=== PATIENT | female | born 1980 | race Caucasian/White ===

== ENCOUNTER 2022-05-27 11:22 | Inpatient (IN) | payer OTHER ==
[~2022-05-27 11:22] MED LIST: Iopamidol-370 76% 500 ML 1 ML ONE
[2022-05-27] MEDS ORDERED: Morphine 4 MG/ML VIAL ONE (12:11)
[2022-05-27] MEDS ORDERED: Boostrix 0.5 ML (Tdap) VIAL (>/=7 yrs of age) ONE (12:17)
[2022-05-27] MEDS ORDERED: TETANUS, DIPHTHERIA TOX,ADULT (TDVAX) 0.5 ML VIAL IM ONE (12:21)
[2022-05-27] MEDS ORDERED: hydrALAZINE 20 MG/ML VIAL SLOW IVP PRN (12:21)
[2022-05-27] MEDS ORDERED: Ondansetron PF 4 MG/2 ML Vial IVP PRN (12:21)
[2022-05-27 12:26] LABS: ALT (SGPT) Less than 7 U/L (8-55); AST (SGOT) 14 U/L (5-34); Albumin 3.8 g/dL (3.5-5.0); Alkaline Phosphatase 54 U/L (40-110); Anion Gap 13 mmol/L (10-20); BHCG - Serum Negative (NEGATIVE); BUN (Urea Nitrogen) 16 mg/dL (7.0-18.7); Bilirubin, Total 0.3 mg/dL (0.2-1.2); Calc. Creatinine Clearance 0 mL/min (70-130); Calcium 8.5 mg/dL (7.8-10.44); Carbon Dioxide 21 mmol/L (22-29); Chloride 107 mmol/L (98-107); Estimated GFR 93; Globulin 3.2 g/dL (2.4-3.5); Glucose 103 mg/dL (70-105); Potassium 3.7 mmol/L (3.5-5.1); Pregs Control Background? CLEAR/WHITE (CLR/WHITE); Pregs Control Bar Appear? YES (CONTROL BAR); Sodium 137 mmol/L (136-145)
[2022-05-27] MEDS ORDERED: Cyclobenzaprine 10 MG TAB PO PRN (12:35)
[2022-05-27] MEDS ORDERED: traMADol HCl 50 MG TAB PO PRN (12:35)
[2022-05-27 12:40] LABS: #Eosinphils 0.1 thou/uL (0.0-0.7); #Lymphocytes 1.2 thou/uL (1.20-3.40); #Monocytes 0.5 thou/uL (0.11-0.59); #Neutrophils 9.4 thou/uL (1.40-6.50); %Basophils 0.4 % (0.0-1.0); %Eosinophils 0.9 % (0.0-10.0); %Lymphocytes 10.3 % (21.0-51.0); %Monocytes 4.8 % (0.0-10.0); %Neutrophils 83.6 % (42.0-75.0); Hemoglobin 12.7 g/dL (12.0-16.0); Mean Corpuscular HGB CONC 32.3 g/dL (32.0-36.0); Mean Corpuscular Hemoglobin 32.8 pg (27.0-31.0); Mean Platelet Volume 8.6 fL (7.4-10.4); Platelet Count 210 thou/uL (130-400); RBC Distribution Width 11.3 % (11.5-14.5); Red Blood Cell (RBC) Count 3.86 mill/uL (4.20-5.40); White Blood Cell (WBC) Count 11.2 thou/uL (4.8-10.8)
[2022-05-27] MEDS ORDERED: CEFAZOLIN 2 GM in Sodium Chloride 0.9% 100 ML IVPB SCH (13:30)
[2022-05-27] MEDS: Morphine 2 MG/ML VIAL SLOW IVP PRN ×2 (14:43→16:14)
[2022-05-27] MEDS: Sodium Chloride 0.9% 1,000 ML IV SCH (14:44)
[2022-05-27 16:13] VITALS: BMI 27.7
[2022-05-27] MEDS ORDERED: fentaNYL Citrate/PF 100 MCG/2 ML SYRINGE ONE ×2 (17:02→19:53)
[2022-05-27] MEDS ORDERED: HYDROmorphone 0.5 MG/0.5 ML SYRINGE ONE (17:02)
[2022-05-27] MEDS ORDERED: CEFAZOLIN 2 GM VIAL ONE (17:25)
[2022-05-27] MEDS ORDERED: Sodium Chloride 0.9% 100 ML ONE (17:25)
[2022-05-27] MEDS: traMADol HCl 50 MG TAB PO SCH (17:40)
[2022-05-27] MEDS: Ketorolac Tromethamine 30 MG/ML VIAL IVP SCH (17:40)
[2022-05-27] MEDS ORDERED: Ketorolac Tromethamine 30 MG/ML VIAL ONE (17:52)
[2022-05-27] MEDS ORDERED: Ondansetron PF 4 MG/2 ML Vial ONE (17:52)
[2022-05-27] MEDS ORDERED: Dexamethasone 20 MG/5 ML VIAL ONE (17:52)
[2022-05-27] MEDS ORDERED: PROPOFOL 200 MG/20 ML VIAL ONE (17:52)
[2022-05-27] MEDS ORDERED: PHENYLEPHRINE-NS 100 MCG/ML 10 ML SYRINGE ONE (17:52)
[2022-05-27] MEDS ORDERED: Promethazine HCl 25 MG/ML VIAL IVPB PRN (19:48)
[2022-05-27] MEDS ORDERED: Ondansetron HCl/PF 4 MG/2 ML Vial IVP PRN (19:48)
[2022-05-27] MEDS ORDERED: Promethazine HCl 25 MG/ML VIAL IM PRN (19:48)
[2022-05-27] MEDS ORDERED: HYDROmorphone 2 MG/ML VIAL SLOW IVP PRN (19:48)
[2022-05-27] MEDS: Famotidine 20 MG TAB PO SCH (21:35)
[2022-05-27] MEDS: Senokot S 8.6-50 MG TAB PO SCH (21:35)
[2022-05-28] MEDS: Ketorolac Tromethamine 30 MG/ML VIAL IVP SCH ×2 (00:16→06:01)
[2022-05-28] MEDS: traMADol HCl 50 MG TAB PO SCH ×5 (00:17→23:44)
[2022-05-28] MEDS: Sodium Chloride 0.9% 1,000 ML IV SCH ×4 (00:22→22:24)
[2022-05-28] MEDS: CEFAZOLIN 2 GM in Sodium Chloride 0.9% 100 ML IVPB SCH ×2 (02:37→09:20)
[2022-05-28 05:55] LABS: #Lymphocytes 0.7 thou/uL (1.20-3.40); #Monocytes 0.4 thou/uL (0.11-0.59); #Neutrophils 6.4 thou/uL (1.40-6.50); %Basophils 0.1 % (0.0-1.0); %Eosinophils 0.1 % (0.0-10.0); %Monocytes 4.7 % (0.0-10.0); %Neutrophils 86.1 % (42.0-75.0); Hemoglobin 9.9 g/dL (12.0-16.0); Mean Corpuscular HGB CONC 31.8 g/dL (32.0-36.0); Mean Corpuscular Hemoglobin 32.6 pg (27.0-31.0); Mean Platelet Volume 8.7 fL (7.4-10.4); Platelet Count 185 thou/uL (130-400); RBC Distribution Width 11.2 % (11.5-14.5); Red Blood Cell (RBC) Count 3.05 mill/uL (4.20-5.40); White Blood Cell (WBC) Count 7.5 thou/uL (4.8-10.8)
[2022-05-28 06:07] LABS: Phosphorus 2.6 mg/dL (2.3-4.7)
[2022-05-28 06:14] LABS: Anion Gap 11 mmol/L (10-20); BUN (Urea Nitrogen) 6 mg/dL (7.0-18.7); Calc. Creatinine Clearance 120 mL/min (70-130); Calcium 7.3 mg/dL (7.8-10.44); Carbon Dioxide 20 mmol/L (22-29); Chloride 110 mmol/L (98-107); Estimated GFR 112; Glucose 151 mg/dL (70-105); Magnesium 1.7 mg/dL (1.6-2.6); Sodium 137 mmol/L (136-145)
[2022-05-28] MEDS ORDERED: Morphine 2 MG/ML VIAL SLOW IVP PRN (07:28)
[2022-05-28] MEDS ORDERED: Magnesium 2 GM/50 ML(in water) 2 GM in Premix Bag 1 BAG IVPB SCH (07:30)
[2022-05-28] MEDS: Famotidine 20 MG TAB PO SCH ×2 (09:11→22:11)
[2022-05-28] MEDS: Ferrous Sulfate 325 MG TAB PO SCH ×2 (09:11→18:06)
[2022-05-28] MEDS: Ascorbic Acid 500 mg Chewable Tablet PO SCH ×2 (09:11→22:11)
[2022-05-28] MEDS: Senokot S 8.6-50 MG TAB PO SCH ×2 (09:11→22:11)
[2022-05-28] MEDS: Enoxaparin Sodium 40 MG/0.4 ML SYRINGE SC SCH (09:11)
[2022-05-28] MEDS: Polyethylene Glycol 3350 17 GM Packet PO SCH (09:11)
[2022-05-28] MEDS: Ibuprofen 200 MG TAB PO SCH ×2 (11:44→18:07)
[2022-05-28] MEDS ORDERED: Ibuprofen 200 MG TAB PO PRN (12:00)
[2022-05-29] MEDS: Ibuprofen 200 MG TAB PO SCH ×3 (03:42→17:36)
[2022-05-29] MEDS: traMADol HCl 50 MG TAB PO SCH ×3 (05:40→17:35)
[2022-05-29] MEDS ORDERED: Levothyroxine Sodium 88 MCG TAB PO SCH (06:00)
[2022-05-29 06:06] LABS: Hemoglobin 9.6 g/dL (12.0-16.0)
[2022-05-29] MEDS: Sodium Chloride 0.9% 1,000 ML IV SCH (08:31)
[2022-05-29] MEDS: Famotidine 20 MG TAB PO SCH (08:31)
[2022-05-29] MEDS: Senokot S 8.6-50 MG TAB PO SCH (08:31)
[2022-05-29] MEDS: Polyethylene Glycol 3350 17 GM Packet PO SCH (08:31)
[2022-05-29] MEDS: Ascorbic Acid 500 mg Chewable Tablet PO SCH (08:31)
[2022-05-29] MEDS: Enoxaparin Sodium 40 MG/0.4 ML SYRINGE SC SCH (08:31)
[2022-05-29] MEDS: Ferrous Sulfate 325 MG TAB PO SCH ×2 (08:31→17:35)
[2022-05-29 11:36] VITALS: BP 91/63; TEMP 98.1
== END 2022-05-29 19:30 | disposition home or self-care (01) | DRG 492 ==
LOC: ERS 11:22 → SURG B 12:24
PROVIDERS: ADMIT Surgery; ATTEND Surgery
PROC: 0QHH35Z Insertion of External Fixation Device into Left Tibia, Percutaneous Approach (ICD-10-PCS; principal; 2022-05-28)
PROC: 0PSK04Z Reposition Right Ulna with Internal Fixation Device, Open Approach (ICD-10-PCS; 2022-05-28)
PROC: 0PSQ34Z Reposition Left Metacarpal with Internal Fixation Device, Percutaneous Approach (ICD-10-PCS; 2022-05-28)
PROC: 0QBH0ZZ Excision of Left Tibia, Open Approach (ICD-10-PCS; 2022-05-28)
DX: S52.201A Unspecified fracture of shaft of right ulna, initial encounter for closed fracture (principal); S82.452B Displaced comminuted fracture of shaft of left fibula, initial encounter for open fracture type I or II; S82.872B Displaced pilon fracture of left tibia, initial encounter for open fracture type I or II; S62.307A Unspecified fracture of fifth metacarpal bone, left hand, initial encounter for closed fracture; F17.290 Nicotine dependence, other tobacco product, uncomplicated; V49.49XA Driver injured in collision with other motor vehicles in traffic accident, initial encounter; E89.0 Postprocedural hypothyroidism; Z79.899 Other long term (current) drug therapy; Z85.850 Personal history of malignant neoplasm of thyroid
CPT/HCPCS: 36415; 70450; 71260; 72125; 74177; 76000; 80048; 80053; 83735; 84100; 84703; 85014; 85018; 85025; 86900; 86901; 90471; 90715; 96374; C1713; C1776; C1894; G0390; J0690; J1100; J1170; J1650; J1885; J2270; J2405; J2704; J3475; J3490; J7050; Q9967

== ENCOUNTER 2022-06-06 09:42 | Inpatient (IN) | payer OTHER ==
[2022-06-06 11:23] VITALS: BMI 30.1
[2022-06-06] MEDS ORDERED: Fentanyl 100 MCG/2 ML VIAL ONE ×4 (11:29→16:21)
[2022-06-06] MEDS ORDERED: Ropivacaine 0.5% HCl/PF (150 MG/30 ML VIAL) ONE ×2 (11:29→12:38)
[2022-06-06] MEDS ORDERED: Midazolam HCl 2 mg/2 ml Vial ONE (11:29)
[2022-06-06] MEDS ORDERED: fentaNYL Citrate/PF 100 MCG/2 ML SYRINGE ONE (11:52)
[2022-06-06] MEDS ORDERED: Sodium Chloride 0.9% 100 ML ONE (12:12)
[2022-06-06] MEDS ORDERED: CEFAZOLIN 2 GM VIAL ONE (12:12)
[2022-06-06] MEDS ORDERED: Ondansetron PF 4 MG/2 ML Vial ONE (12:38)
[2022-06-06] MEDS ORDERED: PROPOFOL 200 MG/20 ML VIAL ONE (12:38)
[2022-06-06] MEDS ORDERED: Dexamethasone 20 MG/5 ML VIAL ONE (12:38)
[2022-06-06] MEDS ORDERED: Ketorolac Tromethamine 30 MG/ML VIAL ONE (12:38)
[2022-06-06] MEDS ORDERED: HYDROmorphone 2 MG/ML VIAL ONE (13:11)
[2022-06-06] MEDS ORDERED: Bisacodyl 10 MG SUPP PR PRN (14:36)
[2022-06-06] MEDS ORDERED: Ondansetron PF 4 MG/2 ML Vial IVP PRN (14:36)
[2022-06-06] MEDS ORDERED: FENTANYL 50 MCG/ML VIAL 50 MCG/ML VIAL SLOW IVP PRN (14:36)
[2022-06-06] MEDS ORDERED: Communication Order-Pharmacy FS SCH (14:45)
[2022-06-06] MEDS ORDERED: Ondansetron HCl/PF 4 MG/2 ML Vial IVP PRN (16:00)
[2022-06-06] MEDS ORDERED: Promethazine HCl 25 MG/ML VIAL IM/IV PRN (16:00)
[2022-06-06] MEDS: Ferrous Sulfate 325 MG TAB PO SCH (17:15)
[2022-06-06] MEDS: Ketorolac Tromethamine 30 MG/ML VIAL IVP SCH ×2 (17:15→23:55)
[2022-06-06] MEDS: Docusate 100 MG CAP PO SCH (20:03)
[2022-06-06] MEDS: CEFAZOLIN 2 GM in Sodium Chloride 0.9% 100 ML IVPB SCH (20:03)
[2022-06-06] MEDS: traMADol HCl 50 MG TAB PO PRN (20:04)
[2022-06-06] MEDS: HYDROcodone/Acetaminophen 5/325 mg Tablet PO PRN (23:55)
[2022-06-07] MEDS: Levothyroxine Sodium 88 MCG TAB PO SCH (05:00)
[2022-06-07] MEDS: CEFAZOLIN 2 GM in Sodium Chloride 0.9% 100 ML IVPB SCH (05:00)
[2022-06-07] MEDS: traMADol HCl 50 MG TAB PO PRN ×3 (05:00→21:21)
[2022-06-07] MEDS: Ketorolac Tromethamine 30 MG/ML VIAL IVP SCH ×3 (05:00→17:53)
[2022-06-07 06:04] LABS: #Eosinphils 0.1 thou/uL (0.0-0.7); #Lymphocytes 1.4 thou/uL (1.20-3.40); #Monocytes 0.8 thou/uL (0.11-0.59); #Neutrophils 6.5 thou/uL (1.40-6.50); %Basophils 0.1 % (0.0-1.0); %Eosinophils 1.3 % (0.0-10.0); %Monocytes 8.7 % (0.0-10.0); %Neutrophils 73.8 % (42.0-75.0); Hemoglobin 9.9 g/dL (12.0-16.0); Mean Corpuscular HGB CONC 32.5 g/dL (32.0-36.0); Mean Corpuscular Hemoglobin 33.2 pg (27.0-31.0); Mean Platelet Volume 7.4 fL (7.4-10.4); Platelet Count 247 thou/uL (130-400); RBC Distribution Width 11.9 % (11.5-14.5); Red Blood Cell (RBC) Count 2.98 mill/uL (4.20-5.40); White Blood Cell (WBC) Count 8.8 thou/uL (4.8-10.8)
[2022-06-07] MEDS: Ferrous Sulfate 325 MG TAB PO SCH ×2 (08:53→17:54)
[2022-06-07] MEDS: Docusate 100 MG CAP PO SCH ×2 (08:53→21:21)
[2022-06-07] MEDS: Enoxaparin Sodium 40 MG/0.4 ML SYRINGE SC SCH (08:53)
[2022-06-07] MEDS ORDERED: FLU VACC QS2022-23(6MOS UP)/PF 60 MCG/0.5 ML SYRINGE IM ONE (09:00)
[2022-06-07] MEDS ORDERED: Enoxaparin Sodium 30 MG/0.3 ML SYRINGE SC SCH (09:00)
[2022-06-07] MEDS: HYDROcodone/Acetaminophen 5/325 mg Tablet PO PRN (17:55)
[2022-06-08] MEDS: Levothyroxine Sodium 88 MCG TAB PO SCH (05:34)
[2022-06-08] MEDS: traMADol HCl 50 MG TAB PO PRN (05:34)
[2022-06-08 09:08] VITALS: BP 111/74; TEMP 98.3
[2022-06-08] MEDS: Ferrous Sulfate 325 MG TAB PO SCH (09:21)
[2022-06-08] MEDS: Docusate 100 MG CAP PO SCH (09:21)
[2022-06-08] MEDS: Enoxaparin Sodium 40 MG/0.4 ML SYRINGE SC SCH (09:22)
== END 2022-06-08 10:30 | disposition home or self-care (01) | DRG 493 ==
LOC: SDC 09:42 → SURG B 16:40 → OBSVTOIN 06-07 10:02
PROVIDERS: ADMIT Orthopaedic Surgery; ATTEND Orthopaedic Surgery
PROC: 0QSH04Z Reposition Left Tibia with Internal Fixation Device, Open Approach (ICD-10-PCS; principal; 2022-06-06)
PROC: 0QSK04Z Reposition Left Fibula with Internal Fixation Device, Open Approach (ICD-10-PCS; 2022-06-06)
PROC: 3E0T3BZ Introduction of Anesthetic Agent into Peripheral Nerves and Plexi, Percutaneous Approach (ICD-10-PCS; 2022-06-06)
DX: S82.872A Displaced pilon fracture of left tibia, initial encounter for closed fracture (principal); S52.91XA Unspecified fracture of right forearm, initial encounter for closed fracture; E89.0 Postprocedural hypothyroidism; F17.290 Nicotine dependence, other tobacco product, uncomplicated; S82.492A Other fracture of shaft of left fibula, initial encounter for closed fracture; S62.307A Unspecified fracture of fifth metacarpal bone, left hand, initial encounter for closed fracture; V43.52XA Car driver injured in collision with other type car in traffic accident, initial encounter; Y92.410 Unspecified street and highway as the place of occurrence of the external cause; Z79.899 Other long term (current) drug therapy; Z79.890 Hormone replacement therapy
CPT/HCPCS: 36415; 82565; 85025; 96372; 96374; 96375; 96376; C1713; C1889; G0378; J1100; J1170; J1650; J1885; J2250; J2405; J2704; J2795; J3010; J3490